=== PATIENT | female | born 1950 | race Caucasian/White ===

== ENCOUNTER 2021-03-31 21:22 | Emergency (ER) | payer OTHER ==
[2021-03-31 22:28] LABS: HEMOGLOBIN 14.8 gm/dl (12.3-15.3); RED BLOOD COUNT 4.69 M/UL (4.00-5.10)
[2021-03-31 22:57] LABS: BUN/CREATININE RATIO 19 (0-10)
[2021-03-31] MEDS ORDERED: INDOCIN 50 MG C50 MG PO (23:57)
[2021-03-31] MEDS ORDERED: MEDROL DOSEPAK 24 MG PO (23:57)
== END 2021-04-01 00:05 | disposition home or self-care (01) ==
LOC: ER1 21:22
PROVIDERS: Physician Assistant Medical
DX: M79.672 Pain in left foot (principal); M10.9 Gout, unspecified
CPT/HCPCS: 73630; 80053; 84550; 85025; 99283

== ENCOUNTER 2021-06-11 18:17 | Emergency (ER) | payer OTHER ==
[~2021-06-11 18:17] MED LIST: INDOCIN 50 MG C50 MG PO; MEDROL DOSEPAK 24 MG PO
== END 2021-06-11 20:25 | disposition home or self-care (01) ==
LOC: ER1 18:17
DX: M54.2 Cervicalgia (principal); V43.52XA Car driver injured in collision with other type car in traffic accident, initial encounter; Y92.410 Unspecified street and highway as the place of occurrence of the external cause
CPT/HCPCS: 70450; 72125; 99283

== ENCOUNTER → 2021-09-03 | Outpatient (CLI) | payer OTHER | LOC: EXRD 10:16 | DX: M32.9 Systemic lupus erythematosus, unspecified (principal); Z78.0 Asymptomatic menopausal state | CPT/HCPCS: 77080 ==

== ENCOUNTER → 2021-09-10 | Outpatient (CLI) | payer OTHER | LOC: US 09:00 → EDSTATUS 09:00 → US 09:25 | DX: R09.89 Other specified symptoms and signs involving the circulatory and respiratory systems (principal); M32.9 Systemic lupus erythematosus, unspecified; I10 Essential (primary) hypertension; I25.10 Atherosclerotic heart disease of native coronary artery without angina pectoris; I51.7 Cardiomegaly | CPT/HCPCS: 93306; 93880; 93979 ==

== ENCOUNTER → 2021-09-21 | Outpatient (CLI) | payer OTHER | LOC: MAMO 09:16 | DX: Z12.31 Encounter for screening mammogram for malignant neoplasm of breast (principal); M32.9 Systemic lupus erythematosus, unspecified; R03.0 Elevated blood-pressure reading, without diagnosis of hypertension; Z78.0 Asymptomatic menopausal state | CPT/HCPCS: 77063; 77067 ==

== ENCOUNTER → 2021-10-26 | Outpatient (CLI) | payer OTHER | LOC: CT 13:19 | DX: I65.23 Occlusion and stenosis of bilateral carotid arteries (principal) | CPT/HCPCS: 36415; 70498; 82565; Q9967 ==

== ENCOUNTER → 2021-12-12 | Outpatient (CLI) | payer OTHER ==
[~2021-12-12] VITALS: Ht 157.5 cm; Wt 60.8 kg
== END ==
LOC: OPSV 12:59
DX: M81.0 Age-related osteoporosis without current pathological fracture (principal); R09.89 Other specified symptoms and signs involving the circulatory and respiratory systems; E55.9 Vitamin D deficiency, unspecified; M32.9 Systemic lupus erythematosus, unspecified; I70.0 Atherosclerosis of aorta; I65.22 Occlusion and stenosis of left carotid artery
CPT/HCPCS: 96372; J3111

== ENCOUNTER → 2022-01-14 | Outpatient (CLI) | payer OTHER ==
[~2022-01-14] VITALS: Ht 157.5 cm; Wt 60.8 kg
== END ==
LOC: OPSV 01-13 09:00
DX: M81.0 Age-related osteoporosis without current pathological fracture (principal); E55.9 Vitamin D deficiency, unspecified; R09.89 Other specified symptoms and signs involving the circulatory and respiratory systems; M32.9 Systemic lupus erythematosus, unspecified; I65.22 Occlusion and stenosis of left carotid artery; I70.0 Atherosclerosis of aorta
CPT/HCPCS: 96372; J3111